=== PATIENT | female | born 1990 | race African-American/Black ===

== ENCOUNTER 2022-11-08 21:54 | Emergency (ER) | payer OTHER ==
[~2022-11-08] VITALS: Ht 165.1 cm; Wt 70.0 kg
[2022-11-08 21:58] VITALS: O2SAT 99
[2022-11-08] MEDS ORDERED: ACETAMINOPHEN 500MG TABLET PO ONE (22:30)
[2022-11-08 22:48] LABS: BASOPHILS % 0.7 % (0.0-2.0); EOSINOPHILS % 0.9 % (0.0-5.0); HEMATOCRIT. 38.7 % (36.0-48.0); HEMOGLOBIN. 13.4 g/dL (12.0-16.0); MEAN CORPUSCULAR HEMOGLOBIN 30.4 pg (28.0-32.0); MEAN CORPUSCULAR HGB CONC 34.6 g/dL (31.0-37.0); MEAN CORPUSCULAR VOLUME 87.9 fL (81.0-99.0); MEAN PLATELET VOLUME 8.4 fl (7.4-10.4); MONOCYTES % 10.4 % (2.0-8.0); PLATELET 231 x1000/uL (130-400); RED CELL DISTRIBUTION WIDTH 13.6 % (11.6-14.6); WHITE BLOOD COUNT 7.6 x1000/uL (4.5-11.0)
[2022-11-08 22:55] LABS: CHLORIDE 106 mEq/L (98-107); INDEX HEMOLYSI 1 (1-3); INDEX ICTERIC 1 (1-4); INDEX LIPEMIC 1 (1-3); POTASSIUM 3.4 mEq/L (3.5-5.1); SODIUM 137 mEq/L (136-145)
[2022-11-08 22:57] LABS: CALCIUM 8.5 mg/dL (8.5-10.1); CARBON DIOXIDE 25 mEq/L (21-32); GLUCOSE 108 mg/dL (70-105); UREA NITROGEN BLOOD 14 mg/dL (7-21)
[2022-11-08 23:03] LABS: ALANINE AMINOTRANSFERASE 18 IU/L (13-61); ASPARTATE AMINOTRANSFERASE 7 IU/L (15-37); BILIRUBIN TOTAL 0.5 mg/dL (0.1-1.0); CREATININE 0.7 mg/dL (0.6-1.3); ETHANOL BLOOD < 10 mg/dL (-10); PROTEIN TOTAL 8.2 g/dL (6.0-8.3)
[2022-11-08 23:07] LABS: TROPONIN I HIGH SENSITIVITY < 4 ng/L (<54)
[2022-11-08 23:43] LABS: *AMPHETAMINES SCREEN URINE NEGATIVE (NEGATIVE); *BARBITURATES SCREEN URINE NEGATIVE (NEGATIVE); *BENZODIAZEPINES SCREEN URINE NEGATIVE (NEGATIVE); *COCAINE SCREEN URINE NEGATIVE (NEGATIVE); CANNABINOID URINE SCREEN NEGATIVE (NEGATIVE); ECSTASY MDMA SCREEN URINE NEGATIVE (NEGATIVE); METHADONE URINE SCREEN NEGATIVE (NEGATIVE); OPIATES URINE SCREEN NEGATIVE (NEGATIVE); PHENCYCLIDINE URINE SCREEN NEGATIVE (NEGATIVE)
[2022-11-09] MEDS ORDERED: LORAZEPAM 0.5MG TABLET PO ONE
[2022-11-09 00:40] VITALS: BP 168/99; PULSE 85; RESP 14; TEMP 98.3
[2022-11-09] MEDS ORDERED: MECLIZINE 25MG TABLET PO ONE (00:45)
[2022-11-10] MEDS ORDERED: IBUP-2030 MT (04:13)
== END 2022-11-09 02:12 | disposition home or self-care (01) ==
LOC: ER 21:54 → EDBD 21:54 → ER 11-09 02:12
DX: R07.89 Other chest pain (principal); R00.2 Palpitations; I10 Essential (primary) hypertension
CPT/HCPCS: 80053; 80305; 81025; 80320; 85025; 85379; 84484; 36415; 71045; 93005; 99284; J8597; G0480

== ENCOUNTER 2022-11-09 22:06 | Emergency (ER) | payer OTHER ==
[~2022-11-09] VITALS: Ht 152.4 cm; Wt 69.0 kg
[2022-11-09 22:15] VITALS: O2SAT 100
[2022-11-10 02:33] LABS: BASOPHILS % 0.8 % (0.0-2.0); EOSINOPHILS % 2.8 % (0.0-5.0); HEMATOCRIT. 39.5 % (36.0-48.0); HEMOGLOBIN. 13.7 g/dL (12.0-16.0); LYMPHOCYTES % 49.5 % (20.0-50.0); MEAN CORPUSCULAR HEMOGLOBIN 30.6 pg (28.0-32.0); MEAN CORPUSCULAR HGB CONC 34.8 g/dL (31.0-37.0); MEAN PLATELET VOLUME 8.1 fl (7.4-10.4); MONOCYTES % 7.9 % (2.0-8.0); PLATELET 212 x1000/uL (130-400); RED BLOOD CELL COUNT 4.49 mill/uL (4.2-5.4); RED CELL DISTRIBUTION WIDTH 13.5 % (11.6-14.6); WHITE BLOOD COUNT 6.1 x1000/uL (4.5-11.0)
[2022-11-10 02:39] LABS: CHLORIDE 108 mEq/L (98-107); INDEX HEMOLYSI 1 (1-3); INDEX ICTERIC 1 (1-4); INDEX LIPEMIC 1 (1-3); POTASSIUM 3.9 mEq/L (3.5-5.1); SODIUM 137 mEq/L (136-145)
[2022-11-10 02:49] LABS: ALANINE AMINOTRANSFERASE 16 IU/L (13-61); ASPARTATE AMINOTRANSFERASE 8 IU/L (15-37); BILIRUBIN TOTAL 0.8 mg/dL (0.1-1.0); CALCIUM 8.7 mg/dL (8.5-10.1); CARBON DIOXIDE 25 mEq/L (21-32); CREATININE 0.7 mg/dL (0.6-1.3); GLUCOSE 91 mg/dL (70-105); PROTEIN TOTAL 7.9 g/dL (6.0-8.3); UREA NITROGEN BLOOD 9 mg/dL (7-21)
[2022-11-10] MEDS ORDERED: KETOROLAC 60MG/2ML VIAL IM ONE (03:00)
[2022-11-10 03:03] LABS: TROPONIN I HIGH SENSITIVITY < 4 ng/L (<54)
[2022-11-10 03:12] VITALS: BP 151/95
[2022-11-10 03:23] LABS: CLARITY URINE CLEAR (CLEAR); COLOR URINE YELLOW (YELLOW); GLUCOSE URINE NEGATIVE (NEGATIVE); KETONES URINE NEGATIVE (NEGATIVE); LEUKOCYTE ESTERASE URINE NEGATIVE (NEGATIVE); NITRITE URINE NEGATIVE (NEGATIVE); OCCULT BLOOD URINE NEGATIVE (NEGATIVE); PROTEIN URINE NEGATIVE (NEGATIVE); SPECIFIC GRAVITY URINE 1.012 (1.005-1.030)
[2022-11-10 03:33] LABS: HCG SCREEN NEGATIVE
[2022-11-10] MEDS ORDERED: IBUP-2030 MT (04:13)
[2022-11-10 04:38] VITALS: PULSE 111; RESP 20; TEMP 99
== END 2022-11-10 04:39 | disposition home or self-care (01) ==
LOC: ER 22:06
DX: R00.2 Palpitations (principal); I10 Essential (primary) hypertension
CPT/HCPCS: 81025; 93005; 99284; 80053; 81003; 84703; 85025; 84484; 36415; 96372; J1885; Z7610

== ENCOUNTER 2023-10-14 05:47 | Emergency (ER) | payer OTHER ==
[~2023-10-14] VITALS: Ht 160 cm; Wt 59.0 kg
[~2023-10-14 05:47] MED LIST: IBUP-2030 MT
[2023-10-14 05:53] VITALS: O2SAT 98
[2023-10-14] MEDS ORDERED: ACETAMINOPHEN 325MG TABLET PO STA (05:58)
[2023-10-14] MEDS ORDERED: METOCLOPRAMIDE HCL 10MG TABLET PO ONE (06:00)
[2023-10-14] MEDS: SODIUM CHLORIDE 0.9% 1,000 ML IV ONE (06:23)
[2023-10-14 06:30] LABS: BASOPHILS % 1.2 % (0.0-2.0); EOSINOPHILS % 3.1 % (0.0-5.0); HEMATOCRIT. 41.7 % (36.0-48.0); HEMOGLOBIN. 14.2 g/dL (12.0-16.0); LYMPHOCYTES % 45.3 % (20.0-50.0); MEAN CORPUSCULAR HEMOGLOBIN 30.2 pg (28.0-32.0); MEAN CORPUSCULAR HGB CONC 34.1 g/dL (31.0-37.0); MEAN CORPUSCULAR VOLUME 88.5 fL (81.0-99.0); MEAN PLATELET VOLUME 8.7 fl (7.4-10.4); MONOCYTES % 10.8 % (2.0-8.0); NEUTROPHILS % 39.6 % (40.0-76.0); PLATELET 231 x1000/uL (130-400); RED BLOOD CELL COUNT 4.71 mill/uL (4.2-5.4); RED CELL DISTRIBUTION WIDTH 13.4 % (11.6-14.6); WHITE BLOOD COUNT 6.9 x1000/uL (4.5-11.0)
[2023-10-14] MEDS: ACETAMINOPHEN 325MG TABLET PO NR (06:32)
[2023-10-14] MEDS: METOCLOPRAMIDE HCL 10MG TABLET PO NR (06:33)
[2023-10-14 06:38] LABS: CHLORIDE 108 mEq/L (98-107); SODIUM 138 mEq/L (136-145)
[2023-10-14 06:39] LABS: CARBON DIOXIDE 25 mEq/L (21-32)
[2023-10-14 06:40] LABS: CALCIUM 9.2 mg/dL (8.7-10.4)
[2023-10-14 06:44] LABS: CREATININE 0.8 mg/dL (0.6-1.0); GLUCOSE 100 mg/dL (70-105); UREA NITROGEN BLOOD 8 mg/dL (9-23)
[2023-10-14 06:46] LABS: TROPONIN I HIGH SENSITIVITY < 4 ng/L (3.0-34)
[2023-10-14 06:56] LABS: HCG SCREEN NEGATIVE
[2023-10-14 08:00] VITALS: TEMP 99.3
[2023-10-14] MEDS: KETOROLAC 30MG/ML VIAL IV ONE (08:53)
[2023-10-14] MEDS ORDERED: IBUP-2028 PO (08:56)
[2023-10-14 09:44] VITALS: BP 103/71; PULSE 82; RESP 15
== END 2023-10-14 10:04 | disposition home or self-care (01) ==
LOC: ER 05:49 → CANBEDREQ 09:00 → ER 10:04
DX: R51.9 Headache, unspecified (principal); R10.2 Pelvic and perineal pain; I10 Essential (primary) hypertension
CPT/HCPCS: 99285; 96374; 70450; 76856; 71045; 96361; 80048; 84703; 83880; 83690; 85025; 84484; 36415; J8597; J1885; J7030

== ENCOUNTER 2023-10-26 15:48 | Emergency (ER) | payer OTHER ==
[~2023-10-26] VITALS: Ht 152.4 cm; Wt 71.0 kg
[~2023-10-26 15:48] MED LIST changes: +IBUP-2028 PO
[2023-10-26 16:01] VITALS: O2SAT 100
[2023-10-26 19:42] LABS: DIFFERENTIAL COMMENT 0; HEMATOCRIT. 42.6 % (36.0-48.0); HEMOGLOBIN. 14.4 g/dL (12.0-16.0); LYMPHOCYTES % 43.9 % (20.0-50.0); MEAN CORPUSCULAR HEMOGLOBIN 30.1 pg (28.0-32.0); MEAN CORPUSCULAR HGB CONC 33.8 g/dL (31.0-37.0); MEAN CORPUSCULAR VOLUME 89.1 fL (81.0-99.0); MEAN PLATELET VOLUME 8.7 fl (7.4-10.4); MONOCYTES % 7.2 % (2.0-8.0); NEUTROPHILS % 45.9 % (40.0-76.0); PLATELET 246 x1000/uL (130-400); RED BLOOD CELL COUNT 4.78 mill/uL (4.2-5.4); RED CELL DISTRIBUTION WIDTH 13.3 % (11.6-14.6); WHITE BLOOD COUNT 6.5 x1000/uL (4.5-11.0)
[2023-10-26 19:47] LABS: CHLORIDE 107 mEq/L (98-107); POTASSIUM 4.2 mEq/L (3.5-5.1); SODIUM 140 mEq/L (136-145)
[2023-10-26 19:48] LABS: CALCIUM 9.5 mg/dL (8.7-10.4); CARBON DIOXIDE 29 mEq/L (21-32)
[2023-10-26 19:53] LABS: CREATININE 0.8 mg/dL (0.6-1.0); GLUCOSE 83 mg/dL (70-105); UREA NITROGEN BLOOD 6 mg/dL (9-23)
[2023-10-26 19:56] LABS: HCG SCREEN NEGATIVE; TROPONIN I HIGH SENSITIVITY < 4 ng/L (3.0-34)
[2023-10-26 20:31] VITALS: BP 149/91; PULSE 83; RESP 16; TEMP 98.5
[2023-10-26] MEDS: MAGNESIUM/ALUMINUM HYDROXIDE/SIMETHICONE 30ML UDC PO ONE (21:44)
[2023-10-26] MEDS: ACETAMINOPHEN 325MG TABLET PO ONE (21:45)
== END 2023-10-26 21:48 | disposition home or self-care (01) ==
LOC: ER 15:48
DX: M79.10 Myalgia, unspecified site (principal); R51.9 Headache, unspecified; I10 Essential (primary) hypertension
CPT/HCPCS: 36415; 71045; 80048; 81025; 84484; 84703; 85025; 93005; 99285

== ENCOUNTER 2023-11-30 19:30 | Emergency (ER) | payer OTHER ==
[~2023-11-30] VITALS: Ht 154.9 cm; Wt 69.9 kg
[2023-11-30 19:37] VITALS: TEMP 98.8; O2SAT 99
[2023-11-30 20:22] LABS: BASOPHILS % 0.7 % (0.0-2.0); EOSINOPHILS % 2.4 % (0.0-5.0); HEMATOCRIT. 40.3 % (36.0-48.0); HEMOGLOBIN. 13.8 g/dL (12.0-16.0); LYMPHOCYTES % 43.8 % (20.0-50.0); MEAN CORPUSCULAR HEMOGLOBIN 30.5 pg (28.0-32.0); MEAN CORPUSCULAR HGB CONC 34.3 g/dL (31.0-37.0); MEAN CORPUSCULAR VOLUME 88.9 fL (81.0-99.0); MEAN PLATELET VOLUME 8.5 fl (7.4-10.4); MONOCYTES % 8.7 % (2.0-8.0); NEUTROPHILS % 44.4 % (40.0-76.0); PLATELET 221 x1000/uL (130-400); RED BLOOD CELL COUNT 4.54 mill/uL (4.2-5.4); WHITE BLOOD COUNT 5.6 x1000/uL (4.5-11.0)
[2023-11-30 20:31] LABS: CHLORIDE 104 mEq/L (98-107); POTASSIUM 3.8 mEq/L (3.5-5.1); SODIUM 136 mEq/L (136-145)
[2023-11-30 20:32] LABS: CALCIUM 9.6 mg/dL (8.7-10.4); CARBON DIOXIDE 27 mEq/L (21-32)
[2023-11-30 20:37] LABS: CREATININE 0.9 mg/dL (0.6-1.0); GLUCOSE 94 mg/dL (70-105); UREA NITROGEN BLOOD 7 mg/dL (9-23)
[2023-11-30 20:39] LABS: ALANINE AMINOTRANSFERASE 16 IU/L (10-49); ALBUMIN 4.9 g/dL (3.2-4.8); ASPARTATE AMINOTRANSFERASE 15 IU/L (<34); BILIRUBIN DIRECT 0.2 mg/dL (<=3.0); BILIRUBIN TOTAL 0.6 mg/dL (0.1-1.0); PROTEIN TOTAL 7.9 g/dL (6.0-8.3)
[2023-11-30 21:19] LABS: TROPONIN I HIGH SENSITIVITY < 4 ng/L (3.0-34)
[2023-12-01 00:42] LABS: HCG SCREEN NEGATIVE
[2023-12-01] MEDS: ONDANSETRON 4MG ODT PO ONE (00:56)
[2023-12-01] MEDS: HYDROCODONE/ACETAMINOPHEN 5/325MG TABLET PO NR (01:36)
[2023-12-01] MEDS: IBUPROFEN 400MG TABLET PO NR (01:36)
[2023-12-01] MEDS ORDERED: ONDA4TAB50 MT (02:44)
[2023-12-01] MEDS ORDERED: LACT1CAP78 MT (02:44)
[2023-12-01] MEDS ORDERED: LOPE2CAP MT (02:44)
[2023-12-01 02:49] LABS: CLARITY URINE CLEAR (CLEAR); COLOR URINE YELLOW (YELLOW); GLUCOSE URINE NEGATIVE (NEGATIVE); KETONES URINE NEGATIVE (NEGATIVE); LEUKOCYTE ESTERASE URINE NEGATIVE (NEGATIVE); NITRITE URINE NEGATIVE (NEGATIVE); OCCULT BLOOD URINE NEGATIVE (NEGATIVE); PH URINE 5.5 (4.5-8.0); PROTEIN URINE NEGATIVE (NEGATIVE); SPECIFIC GRAVITY URINE 1.018 (1.005-1.030); UROBILINOGEN URINE 0.2 E.U./dL (0.2-1.0)
[2023-12-01 02:55] VITALS: BP 148/89; PULSE 81; RESP 15; O2SAT 97
== END 2023-12-01 02:57 | disposition home or self-care (01) ==
LOC: ER 19:30
DX: K52.9 Noninfective gastroenteritis and colitis, unspecified (principal); R11.10 Vomiting, unspecified; I10 Essential (primary) hypertension; Z79.899 Other long term (current) drug therapy
CPT/HCPCS: 36415; 71045; 74176; 80048; 80076; 81003; 84484; 84703; 85025; 93005; 99285; Q0162